=== PATIENT | male | born 1970 | race Caucasian/White ===

== ENCOUNTER 2016-09-04 15:00 | Observation (INO) | payer BC ==
[~2016-09-04] VITALS: Ht 182.9 cm; Wt 172.6 kg
--- NOTE | ~2016-09-04 | DS ---
PATIENT'S NAME: JON SOTO [facility] AGE: 46 Y [address] ROOM: [address] [place], [place] [address] LOCATION: GPCU ADMIT DATE: 09/04/2016 Discharge Summary DISCHARGE DATE: 09/06/2016 FAMILY PHYSICIAN: Elfego Summers MD ATTENDING PHYSICIAN: Elfego Summers FINAL DIAGNOSES: 1. Community-acquired pneumonitis, type unspecified, present on admission. 2. Morbid exogenous obesity, present on admission. 3. Diabetes mellitus type 2, treated with insulin with hyperglycemia. 4. Hypertension of essential, present on admission, stable. 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 I felt he probably had a pneumonia and I admitted him to the hospital. Please see my history and physical. On admission to the hospital, I ordered a CT scan of his chest because he was on anticoagulant to make sure he did not have a pulmonary embolus. His CT scan of the chest came back showing a dense right middle lobe infiltrate without evidence of pulmonary embolus or other complicating feature. See report. The patient was started on the pneumonia pathway, started on sliding scale insulin, continued on his prior home medicine, given breathing treatments 4 times a day and started on IV Rocephin and IV Zithromax, and given Phenergan with Codeine for cough. He improved. On the day of dismissal on 09/06/2016, he has improved enough to go home. On dismissal, he is ambulating without symptoms, his O2 sats are above 90% on room air, his Accu-Chek this morning was in the 120s, his blood pressure is normal, and he has been afebrile for 24-36 hours. He has had no untoward side effects of treatment with IV antibiotics. He, therefore, is dismissed to home today. He is dismissed on the med list shown. Will finish out 7 more days of Ceftin 500 and Zithromax. We will send him home with some cough medicine, and follow up in the office in 2 weeks. I told him we would get a followup chest x-ray in 2-4 weeks to make sure he heals up. PATIENT'S NAME: JON SOTO [facility] AGE: 46 Y [address] ROOM: [place] [address] [facility] ADMIT DATE: 09/04/2016 Discharge Summary DISCHARGE DATE: 09/06/2016 FAMILY PHYSICIAN: Elfego Summers MD ATTENDING PHYSICIAN: Elfego Summers If he has fever, chills, or other problems, he should be seen back earlier and he understands. MD JAVIER POOLE/zeyadl /[id number] d: 09/06/16 2106 t: 09/24/16 1731, DISCHARGE SUMMARY
--- NOTE | ~2016-09-04 | HP ---
PATIENT'S NAME: JON SOTO [facility] AGE: 46 Y [address] ROOM: [place] [address] LOCATION: GPCU ADMIT DATE: 09/04/2016 History & Physical DISCHARGE DATE: 09/06/2016 FAMILY PHYSICIAN: Elfego Summers MD ATTENDING PHYSICIAN: Elfego Summers DATE OF SERVICE: CHIEF COMPLAINT: Cough and shortness of breath. 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 He is a new patient to me just prior to admission. He presented to my office today with a cough, fever 102, and found to have an O2 saturation of 90% in my office and obvious right lower lobe pneumonia. I admitted him to the hospital at this time with a diagnosis of community-acquired pneumonitis, type unspecified, with a history of morbid exogenous obesity, chronic anticoagulation for DVT in the past, diabetes mellitus type 2, and hypoxemia related to community-acquired pneumonitis. At this point, we will put him in the hospital, put him on the pneumonia pathway, start with IV Rocephin and IV Zithromax, give him breathing treatments, cover him with Lovenox if he is not already on Eliquis and obtained a CT of the chest with PE protocol to rule out pulmonary embolus along with an acute infiltrate in his right lung. PAST MEDICAL HISTORY: Reviewed and noted. MEDICATIONS: Reviewed and noted. ALLERGIES: NOTED. SOCIAL HISTORY: He does not smoke. FAMILY HISTORY: Noncontributory. IMMUNIZATIONS: Up-to-date. REVIEW OF SYSTEMS: HEENT: He has had a runny nose. He wears glasses. PATIENT'S NAME: JON STOO [facility] AGE: 46 Y [address] ROOM: [place] [address] LOCATION: GPCU ADMIT DATE: 09/04/2016 History & Physical DISCHARGE DATE: 09/06/2016 FAMILY PHYSICIAN: Elfego Summers MD ATTENDING PHYSICIAN: Elfego Summers ENDOCRINE: He is a type 2 diabetic, on insulin. LUNGS: As above. HEART: No recent chest pain with exertion. No recent MO. GI: Decreased appetite. : No dysuria or frequency. EXTREMITIES: Chronic edema. NEUROLOGIC: No history of seizure or syncope. Mental Status: Anxious about his health. PHYSICAL EXAMINATION: GENERAL: Morbid exogenous obesity noted. VITAL SIGNS: Noted. He is febrile. O2 sats noted. He is competent. HEENT: Shows he wears glasses. Pupils reactive to light. TMs normal. Posterior pharynx is erythematous. No exudate. Mucous murmurs are dry. NECK: Unremarkable. Thyroid not enlarged. LUNGS: Clear in the upper lobes. Decreased breath sounds in both lower lobes posteriorly. CARDIAC: Heart sounds are distant. Regular rhythm noted. No murmur. ABDOMEN: Morbidly obese, but nontender. No obvious mass. PELVIS: Not done. RECTAL: Not done. EXTREMITIES: Show 4+ edema in the ankles. NEUROLOGIC: Shows cranial nerves intact. No lateralizing signs. Mental status: Normal cognition for age, but anxious about health. ASSESSMENT: 1. Acute community-acquired pneumonitis, type unspecified, probably right lower lung. 2. Morbid exogenous obesity. 3. Diabetes mellitus, type 2, treated with insulin. 4. History of chronic anticoagulation, need further records. 5. Hypoxemia, secondary to acute community-acquired pneumonitis. PLAN: As above. MD JAVIER POOLE/sallie /[id number] D: [id number] T: [id number] HISTORY & PHYSICAL
[2016-09-04] MEDS ORDERED: FARXIGA10 MG PO (16:12)
[2016-09-04] MEDS ORDERED: ELIQUIS5 MG PO (16:12)
[2016-09-04] MEDS ORDERED: TOPROL XL25 MG PO (16:13)
[2016-09-04] MEDS ORDERED: PRINIVIL (ZESTR20 MG PO (16:13)
[2016-09-04] MEDS ORDERED: ASPIRIN LO-DOSE81 MG PO (16:14)
[2016-09-04 17:56] LABS: BASOPHIL # 0.1 K/uL (0.0-0.2); BASOPHIL % 0.4 %; EOSINOPHIL # 0.1 K/uL (0.0-0.5); EOSINOPHIL % 0.4 %; HEMATOCRIT 52.3 % (37.0-53.0); HEMOGLOBIN 17.7 g/dL (12.0-17.0); IMMATURE GRANULOCYTE # 0.1 K/uL (0.0-0.3); IMMATURE GRANULOCYTE % 0.4 %; LYMPHOCYTE # 1.6 K/uL (0.8-4.0); LYMPHOCYTE % 11.3 %; MCH 29.3 pg (27.0-34.0); MCHC 33.8 gm/dL (32.0-36.5); MCV 86.6 fl (83.0-98.0); MONOCYTE % 6.9 %; MPV 11.1 fl (9.4-12.4); NEUTROPHIL # (ANC) 11.1 K/uL (1.4-9.0); NEUTROPHIL % 80.6 %; NRBC % 0 /100WBC (0-0.00); PLATELET COUNT 159 K/uL (150-450); RBC 6.04 M/uL (4.00-6.00); RDW-CV 13.7 % (11.9-14.6); WBC 13.8 K/uL (4.0-11.0)
[2016-09-04 18:09] LABS: ALBUMIN 3.9 gm/dL (3.5-5.0); ANION GAP 14.5 (10.0-19.0); CALCIUM 8.7 mg/dL (8.5-10.5); POTASSIUM 4.5 mMol/L (3.7-5.1); TOTAL BILIRUBIN 0.5 mg/dL (0.0-1.5); TOTAL PROTEIN 7.8 g/dL (6.0-8.4)
[2016-09-04 18:14] LABS: INR - (THERAPEUTIC) 0.97 (0.92-1.07); PROTIME 10.2 SECONDS (9.8-11.4); PTT 28 SECONDS (25-32)
--- NOTE | 2016-09-04 19:23 | NUR ---
ADMIT NOTE: A 46 YR. OLD W/M ADMITTED FROM DR. Marcy BETANCOURT [facility]. STARTED FEELING SICK ON Thursday09/03/16. HAD CHILLS AND A COUGH. THRU THE NIGHT DIDN'T GET MUCH REST AND TOOK ADVIL FOR FEVER. BY THURSDAY A.M. 09/04/16. FELT WORSE AND HAD PROD. COUGH OF GREENISH SPUTUM. AND CONT. WITH FEVER. ADMITTED FOR PNEUMONIA.
--- NOTE | 2016-09-05 05:22 | NUR ---
Significant events: Pt A/Ox3. VSS. On RA. Productive cough. No complaints of pain. Tylenol x1 for feeling "feverish", max temp of 99.6. Up ad gloria. IV antibiotics. ACHS accucheck. Slept most of shift.
--- NOTE | 2016-09-05 12:07 | NUR ---
Diabetes consult: Patient with Type II diabetes and A1C of 11.7%. Patient has been on Farxiga for the last year and was recently restarted on Metformin 500 mg per day. Previously he reports being given Metformin 1500 mg and had severe diarrhea. The patient states he is tolerating the low dose metformin well at this time. Patient may benefit from a basal insulin in addition to his oral glycemic to lower his A1C. In addition, he would benefit from outpatient MNT therapy. Currently he is receiving Novolog aggressive correction scale. The patient was instructed on use of this scale and basal/bolus insulin in anticipation of being discharged on one or both agents. Patient received instructions on how to use the insulin pen device and received a new glucometer. Education regarding hypo and hyperglycemia was reviewed. The patient is not receptive to outpatient diabetes ed but would like to meet with the dietitian. Referral for outpatient dietitian was faxed to Dr. Summers. Patient denies any questions or concerns. Report given to patient's primary nurse.
--- NOTE | 2016-09-05 13:34 | NUR ---
Introduced self and CM role to [place]. He tells me that he lives in [place] with his S/O and plans to return there when he is able to. He says that his S/O will come and pick him up when he is released from our care. [place] states that his PCP is , he sees' him on a regular basis. He manages his own medications at baseline, gets them filled at [facility], will continue to do this when dismissed. Denies any need for any DME or HHC upon dismissal. He is hoping to get to go home either later today or tomorrow if he is able to do so. CM to continue to follow and assist. Plan home.
--- NOTE | 2016-09-05 16:36 | NUR ---
Significant Event: A/O X 3. UP AD SCOTTY. LESS SHORT OF BREATH AND FEELING BETTER TODAY. CONT. ON IV ANTIBIOTICS. AFEBRILE. HR SR IN 80-90'S. SBP 120-130'S. TYLENOL FOR HEADACHE. Follow up: CONT. TO [facility] RESP. STATUS.
--- NOTE | 2016-09-06 05:03 | NUR ---
A/OX3. VSS on RA. Non-productive cough. No C/O pain. ACHS accuchecks. Independed in room. 650mg of Tylenol given at 0000 for Headache. Regular Diet. No IV access OK'd by Dr. Summers. Changed Rocephin to IM. Lung sounds are clear and dimished. Bowel sounds present.
[2016-09-06] MEDS ORDERED: TYLENOL325 MG PO (11:40)
[2016-09-06] MEDS ORDERED: PHENERGAN WITH15 ML PO (11:41)
[2016-09-06] MEDS ORDERED: ZITHROMAX250 MG PO (11:42)
--- NOTE | 2016-09-06 12:49 | NUR ---
DISM. NOTE: A/O X 3. AT BEDSIDE REVIEW OF HOME MEDS AND NEW MEDS WITH HANDOUTS AND SIDE EFFECTS DISCUSSED. PRESCRIPTIONS GIVEN. FOLLOW UP APPT. DIET/ ACTIVITY PT. AND VOICED UNDERSTANDING
== END 2016-09-06 12:40 | disposition disaster alternative care site (69) ==
LOC: GPCU 15:05
PROVIDERS: ADMIT Family Medicine
DX: J18.9 Pneumonia, unspecified organism (principal); E66.01 Morbid (severe) obesity due to excess calories; E11.65 Type 2 diabetes mellitus with hyperglycemia; I10 Essential (primary) hypertension; Z79.4 Long term (current) use of insulin; Z68.43 Body mass index [BMI] 50.0-59.9, adult
CPT/HCPCS: G0378; G0379; J0456; J0696; J1650; J7040; J7050

== ENCOUNTER → 2016-09-11 | Outpatient (CLI) | payer BC ==
[~2016-09-11] MED LIST: ADVIL200 MG PO; ASPIRIN LO-DOSE81 MG PO; CLINDAMYCIN150 MG PO; ELIQUIS5 MG PO; FARXIGA10 MG PO; LASIX40 MG PO; LEVEMIR100 UNIT/1 SUB-Q; PHENERGAN WITH15 ML PO; POTASSIUM CHLO10 MEQ PO; PRINIVIL (ZESTR20 MG PO; TOPROL XL25 MG PO; TYLENOL325 MG PO; ULTRAM50 MG PO; ZITHROMAX250 MG PO
== END | disposition disaster alternative care site (69) ==
LOC: GNUT 08:54
DX: E11.65 Type 2 diabetes mellitus with hyperglycemia (principal)

== ENCOUNTER 2016-09-23 19:19 | Inpatient (IN) | payer BC ==
[~2016-09-23] VITALS: Ht 182.9 cm; Wt 192.9 kg
--- NOTE | ~2016-09-23 | ER ---
PATIENT'S NAME: JON SOTO [facility] AGE: 46 Y [address] ROOM: [place] [address] LOCATION: GPCU ADMIT DATE: 09/23/2016 ER/Outpatient Report DISCHARGE DATE: FAMILY PHYSICIAN: NILSON SUMMERS MD ATTENDING PHYSICIAN: KELSY LANE Time of Arrival: 1919 hours. Time of Exam: 1920 hours. CHIEF COMPLAINT: Right leg pain. HISTORY OF PRESENT ILLNESS: The patient states that he woke this morning around 5 o'clock with swelling and pain of his right lower leg. He did see Dr. Summers and had a Doppler done of the leg, it was negative for clot at that time. He was given a shot of Rocephin for cellulitis and to go back tomorrow morning for another injection. He states tonight that the pain has become much more severe, it seems more swollen than what it had and he is just concerned that things are getting worse instead of better. ALLERGIES: HE HAS NO KNOWN ALLERGIES. CURRENT MEDICATIONS: On the chart and reviewed by me. PAST MEDICAL HISTORY: He recent went home mid-August due to pneumonia. He is vhg-vgimzna-rcriitodb diabetes, hypertension, and iliac stents bilaterally. SOCIAL HISTORY: He presents with his . Denies use of tobacco, drugs, or alcohol. REVIEW OF SYSTEMS: Negative other than those mentioned in the HPI. PHYSICAL EXAMINATION: VITAL SIGNS: He weighed 179 kg, blood pressure is 155/89, pulse of 98, respirations 24, temperature of 98.2 tympanic, O2 saturation was 96% on room air. GENERAL: He is awake, alert, and oriented x4. SKIN: [place], warm, and dry. RESPIRATIONS: Even and nonlabored. Lung sounds are clear throughout. HEART: Regular rate and rhythm. PATIENT'S NAME: JON SOTO [facility] AGE: 46 Y [address] ROOM: [address] [address] LOCATION: GPCU ADMIT DATE: 09/23/2016 ER/Outpatient Report DISCHARGE DATE: FAMILY PHYSICIAN: NILSON SUMMERS MD ATTENDING PHYSICIAN: KELSY LANE EXTREMITIES: Right lower leg is quite edematous and is purplish red in color. It is cool to touch. He does have a strong pedal pulse. Able to move his leg, wiggle his toes. Does have quite a bit of discomfort with it. LABORATORY DATA: Lab work was drawn. His CBC was 12.2. Chem panel shows a glucose of 263, otherwise within normal limits. Lactate was 1.7 with a procalcitonin which is normal. I did repeat the venous Doppler of his legs, it did show a clot at the right femoral vein. Dr. Summers was contacted, he would like the Hospitalist to be notified. Dr. Lane was contacted. He did come see the patient and ordered for CT angiogram stat as well as start a heparin drip. IMPRESSION: Right femoral deep vein thrombosis. PLAN: The patient will be admitted to the hospital for care of the Hospitalist. He and his family verbalized understanding. TREMAYNE NOBLE APRN FOR DO JONAH HALEY/sallie /[id number] d: 09/24/16 0239 t: 10/01/16 1623, OUTPATIENT REPORT
--- NOTE | ~2016-09-23 | DS ---
PATIENT'S NAME: JON SOTO [facility] AGE: 46 Y [address] [place] [facility] [place] [place] [address] LOCATION: GPCU ADMIT DATE: 09/23/2016 Discharge Summary DISCHARGE DATE: 09/28/2016 FAMILY PHYSICIAN: Elfego Summers MD ATTENDING PHYSICIAN: Trent Arriola PRINCIPAL DIAGNOSES: 1. Sepsis, secondary to right leg cellulitis. 2. Right lower extremity ulcer. 3. Acute right lower extremity deep vein thrombosis while on anticoagulation. 4. Scrotal swelling. 5. Morbid obesity. 6. Type 2 diabetes. HOSPITAL COURSE: This is a 46-year-old male with a history of uncontrolled diabetes and a history of right lower extremity DVT that presents with worsening pain of the right lower leg. On presentation, he was noted to have an open ulcer as well as cellulitis around the ulcer on the right leg. The patient also had a repeat venous Doppler, which showed an acute DVT. The patient had been on Eliquis for previous DVT and this new DVT is deemed to be while on anticoagulation and the patient generally reports compliance with the medications. Noting that this is an acute DVT while on anticoagulation, Vascular Surgery Team was consulted and an IVC had been placed. The patient in the following days also complained of increasing scrotal pain and noting that the patient also has significant history of venous stasis and this appears to be related to the problems with venous return. In any case, I have had Urology, Dr. Gibson, come and evaluate the patient, and he agrees with conservative management and fluid management. The patient at this point is to continue to finish antibiotic course of clindamycin and will follow up with the [facility] in 1 week, primary care physician in 1 week, as well as Vascular Surgery in 2 to 3 weeks. PHYSICAL EXAMINATION: GENERAL: The patient is awake, alert, and oriented x3, in no acute distress. CHEST: Clear to auscultation bilaterally. HEART: S1 and S2, regular rate and rhythm. ABDOMEN: Soft, nontender, nondistended. EXTREMITIES: Right lower extremity pitting edema with a superficial open ulcer and mild oozing. MEDICATIONS: Per MAR includin. Lasix 40 mg p.o. daily. 2. Clindamycin 600 mg t.i.d. for 3 more days. 3. Eliquis 5 mg p.o. t.i.d. PATIENT'S NAME: JON SOTO [facility] AGE: 46 Y [address] ROOM: [place] [address] LOCATION: GPCU ADMIT DATE: 09/23/2016 Discharge Summary DISCHARGE DATE: 09/28/2016 FAMILY PHYSICIAN: Elfego Summers MD ATTENDING PHYSICIAN: Trent Arriola DISPOSITION: Home. FOLLOW UP: Followup with PCP in 1 week, Wound Care in 1 week, as well as Vascular Surgery in 2 to 3 weeks. Greater than 30 minutes were spent in discharge planning and facilitating. MD BRAULIO WEINER/sallie /[id number] d: 09/29/16 0054 t: 09/29/16 1426, DISCHARGE SUMMARY
--- NOTE | ~2016-09-23 | DS ---
PATIENT'S NAME: JON SOTO [facility] AGE: 46 Y [address] ROOM: [place] [address] LOCATION: GPCU ADMIT DATE: 09/23/2016 Discharge Summary DISCHARGE DATE: FAMILY PHYSICIAN: Nilson Betancourt MD ATTENDING PHYSICIAN: Trent Arriola FINAL DIAGNOSES: 1. Right middle lobe community-acquired pneumonitis. 2. Morbid exogenous obesity. 3. Diabetes mellitus, type 2. 4. Hypertension, essential. HOSPITAL COURSE: This male was admitted to the hospital after being seen in my office. Please see dictated history and physical. He was placed on the pneumonia pathway, given IV antibiotics, and because of his size and his amount of shortness of breath, I went ahead and did a CT scan of his chest with PE protocol. This came back showing a large consolidation in the right middle lobe, but no evidence of other complicating features such as pulmonary embolus. His cardiac workup here was negative. He continued to improve with IV antibiotics and was dismissed to home on the date shown. He is dismissed on the medications shown. He is to see back in office in 1 week. At home, he can have a diabetic diet and activity as tolerated and finish out his course of antibiotics; certainly, if he coughs up any blood, has high fever, chills, vomiting, diarrhea, rash from his medicine, or diarrhea he is to be seen back earlier and he verbalizes understanding of that. NILSON BETANCOURT MD WOMEN'S STUDIES LECTURER/modl /[id number] d: 09/25/16 0147 t: 09/26/16 0754, DISCHARGE SUMMARY
--- NOTE | ~2016-09-23 | OR ---
PATIENT'S NAME: JON SOTO [facility] AGE: 46 Y [address] ROOM: [place] [address] LOCATION: GPCU ADMIT DATE: 09/23/2016 OR/Procedure Report DISCHARGE DATE: FAMILY PHYSICIAN: NILSON BETANCOURT MD ATTENDING PHYSICIAN: KELSY LANE SURGEON: Geoff Cage MD OUTPATIENT RECEPTIONIST: DATE OF PROCEDURE: 09/24/2016 PREOPERATIVE DIAGNOSIS: Deep vein thrombosis while on anticoagulation, need for inferior vena cava filter. POSTOPERATIVE DIAGNOSIS: Deep vein thrombosis while on anticoagulation, need for inferior vena cava filter. PROCEDURE: IVC filter placement. PATTERN FITTER: Nishant. ANESTHESIA: MAC local. BLOOD LOSS: 50 mL. OPERATIVE FINDINGS: Bilateral iliac vein stent present in the patient preop as well filter in correct upright position. DESCRIPTION OF PROCEDURE: The patient was brought to [facility], placed supine on the [facility] table, prepped and draped in a sterile manner, preoperative time-out was performed. We used ultrasound guidance to gain access to the common femoral vein on the left. The patient had a complete blockage on the right with DVT. Even with ultrasound guidance, access was extremely difficult and eventually we did get access. We then passed a Bentson wire up and the Bentson wire got caught on the iliac stents. We put a 5-[place] Citizen sheath over the Bentson wire. We then had to use angled glide catheter as well as a Glidewire in order to traverse these torture stents. We then exchanged through the glide cath for a stiffer Magic Torque wire. We then deployed the filter at the L1-L2 screws using the Magic Torque wire. Sheath was removed, pressure was held for 10 minutes, the patient tolerated the procedure well, and transferred back to the U. GEOFF CAGE MD PATIENT'S NAME: JON SOTO [facility] AGE: 46 Y [address] ROOM: [place] [address] LOCATION: GPCU ADMIT DATE: 09/23/2016 OR/Procedure Report DISCHARGE DATE: FAMILY PHYSICIAN: NILSON BETANCOURT MD ATTENDING PHYSICIAN: KELSY LANE [facility]/modl /[id number] d: 09/25/16 0139 t: 09/26/16 1233, OPERATIVE SUMMARY
--- NOTE | ~2016-09-23 | CON ---
PATIENT'S NAME: JON SOTO [facility] AGE: 46 Y [address] ROOM: [address] [place] [address] LOCATION: GPCU ADMIT DATE: 09/23/2016 Consultation DISCHARGE DATE: FAMILY PHYSICIAN: NILSON BETANCOURT MD ATTENDING PHYSICIAN: KELSY LANE DATE OF CONSULTATION: 09/24/2016 REFERRING PHYSICIAN: Dr. Lane. REASON FOR CONSULT: Right lower extremity cellulitis. HISTORY OF PRESENT ILLNESS: This is a 46-year-old male patient who was admitted to [facility] with right lower extremity cellulitis. He has a history of type 2 diabetes mellitus, hypertension, PVD, and DVT. Last week, he suffered trauma to the site by a drill bit. He is currently applying Neosporin to the wound. Ultrasound was positive for right lower extremity DVTs. The patient denies constitutional symptoms. He was previously anticoagulated on Eliquis; however, notes he did miss some doses. He reports a good oral intake. He does not wear diabetic footwear. He does not wear compression stockings. He has a history of an iliac stent. He denies intermittent claudication symptoms. He denies chest pain or shortness of breath. PAST MEDICAL HISTORY: Type 2 diabetes mellitus, essential hypertension, morbid obesity, community- acquired pneumonia, DVT, PVD, and cellulitis. PAST SURGICAL HISTORY: Laminectomy, iliac stent, tonsillectomy, knee scope, and hand surgery. FAMILY MEDICAL HISTORY: Positive for diabetes. SOCIAL HISTORY: The patient lives with his in [place]. He is a nonsmoker. He denies alcohol use. 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 ALLERGIES: NO KNOWN DRUG ALLERGIES. CURRENT MEDICATIONS: PATIENT'S NAME: JON SOTO [facility] AGE: 46 Y [address] ROOM: [id number] [place] [id number] LOCATION: GPCU ADMIT DATE: 09/23/2016 Consultation DISCHARGE DATE: FAMILY PHYSICIAN: NILSON BETANCOURT MD ATTENDING PHYSICIAN: KELSY LANE Please refer to medication administration record. REVIEW OF SYSTEMS: Pertinent positives addressed in the HPI and all the rest are negative. PHYSICAL EXAMINATION: VITAL SIGNS: Temperature 98.0, pulse 89, respirations 16, blood pressure 127/83, and pulse oximetry 94% on room air. Height 6 feet even and weight 178.4 kg. GENERAL: The patient is alert and oriented x3. Obese in nature. No acute distress. HEENT: Head: Normocephalic, atraumatic. Anicteric sclerae. NEUROLOGICAL: Grossly nonfocal. EXTREMITIES: Doppled pedal pulses. +3 pitting lower leg edema. Capillary refill intact. Heel intact. Right lower extremity, slightly erythemic and stained. SKIN: Right anterior lower extremity wound measures 0.6 cm width x 2.5 cm length x 0.1 cm depth. Wound bed is moist pink. Moderate amount of serosanguineous exudate. Periwound is slightly erythemic but intact. No odor. No other skin issues noted. LABORATORY DATA: White blood cell count 16.1, hemoglobin 15.6, hematocrit 47.1, platelets 153. Procalcitonin less than 0.05. Sodium 139, potassium 4.8, chloride 106, bicarb 23, BUN 21, creatinine 1.0, glucose 211, CRP 1.91, and ESR 3. ASSESSMENT AND PLAN: Again, this is a 46-year-old male patient who was admitted to [facility] with right lower extremity cellulitis and deep vein thromboses. 1. Right lower extremity wound secondary to trauma, complicated by diabetes, peripheral vascular disease, and current deep vein thromboses. We will cover the site with a foam dressing changing Thursday, Thursday, and Thursday. The patient is to have an IVC filter placed by Dr. Cage. After the procedure, nursing is to wrap his right lower extremity from his toes to his thigh with Eugene wraps. They may remove the Eugene wraps to shower and nightly starting tomorrow night. I stressed the importance of elevation and ankle calf pump muscle exercises. VIRY ADHIKARI APRN FOR MD MARTHA BRADSHAW/sallie PATIENT'S NAME: JON SOTO [facility] AGE: 46 Y [address] ROOM: [place] [address] LOCATION: GPCU ADMIT DATE: 09/23/2016 Consultation DISCHARGE DATE: FAMILY PHYSICIAN: NILSON BETANCOURT MD ATTENDING PHYSICIAN: KELSY LANE /[id number] d: 09/25/1650 t: 10/02/16905, CONSULTATION REPORT
--- NOTE | ~2016-09-23 | HP ---
PATIENT'S NAME: JON SOTO [facility] AGE: 46 Y [address] ROOM: [id number] [place], [place] [address] LOCATION: GPCU ADMIT DATE: 09/23/2016 History & Physical DISCHARGE DATE: FAMILY PHYSICIAN: NILSON BETANCOURT MD ATTENDING PHYSICIAN: KELSY LANE DATE OF SERVICE: CHIEF COMPLAINT: Right lower extremity pain and swelling and cyanosis. HISTORY OF PRESENT ILLNESS: This is a 46-year-old male who says that he is noncompliant with home medications. He has a history of prior DVT in the left lower extremity and right upper extremity. He was on Coumadin and then about June 2016 he was switched to Eliquis, but he has been very noncompliant. He also has a history of cellulitis of the lower extremity about 4 to 5 years ago. The story is that about last Thursday the patient injured his right lower extremity with a cut in the right anterior distal samuels. Since then, he has been having pain in that wounded area and getting worse. Today, the right lower extremity has become swollen and tender and also cyanotic as cold to touch. There is some serosanguineous drainage coming out from that wounded area as well. There is no obvious pus. He denies any fever or chills. He also complained that about last Thursday when he was driving back from [place] to [place] he was complaining of some cramps in bilateral thighs on and off for the last few days as well. He denies symptoms of intermittent claudication. Because of the swelling, pain, and serosanguineous drainage with cyanosis of the right lower extremity, the patient today went to [facility] for evaluation. Over there, they did a venous duplex ultrasound, which did not show anything. He was told he had cellulitis. He was given 1 dose of intramuscular ceftriaxone and he was sent home. However, his symptoms persisted. Therefore, he came here for evaluation. He denies any other symptoms. REVIEW OF SYSTEMS: As mentioned in history of present illness. All other systems were reviewed and they were negative except those mentioned in the history of present illness. PAST MEDICAL HISTORY: 1. Diabetes type 2. 2. Hypertension. 3. History of DVT in the right upper extremity (PICC induced) and the left lower extremity PATIENT'S NAME: JON SOTO [facility] AGE: 46 Y [address] ROOM: [address] [address] [facility] ADMIT DATE: 09/23/2016 History & Physical DISCHARGE DATE: FAMILY PHYSICIAN: NILSON BETANCOURT MD ATTENDING PHYSICIAN: KELSY LANE in the past. 4. History of cellulitis in the leg in the past. 5. He is noncompliant with home medications. ALLERGIES: HE DENIES ANY ALLERGIES. HOME MEDICATIONS: Currently are being reconciled. SOCIAL HISTORY: The patient denies any illegal drug or cigarette use. PAST SURGICAL HISTORY: 1. The patient is status post iliac stent placed for peripheral vascular disease in February 2016, two stents on the left side and one stent on the right side. 2. Status post lower back surgery in the past. FAMILY HISTORY: Father has diabetes type 2. Mother has hypertension and diabetes type 2. PHYSICAL EXAMINATION: VITAL SIGNS: At the time of my evaluation, temperature was 98.3, heart rate was 91, respirations 24, blood pressure was 138/89, and saturation was 92% on room air. GENERAL APPEARANCE: Alert and oriented x3. Currently, in no acute distress. HEENT: Pupils equally round and reactive to light. Extraocular muscles intact. Anicteric sclerae. Nasal turbinates are normal bilaterally. Moist oral mucosa. NECK: No JVD. CARDIOVASCULAR: Regular rate and rhythm. Normal S1 and S2. No murmur. No rubs, no gallops. RESPIRATORY: Clear to auscultation. No rales. No rhonchi. No wheezing. No crackles. ABDOMEN: Obese, soft, nontender, nondistended. Bowel sounds present. No mass. EXTREMITIES: He has edema as well as cyanosis as well as serosanguineous drainage as well as tenderness to palpation in the right distal anterior samuels. There is no obvious purulent drainage. Dorsalis pedis pulse and posterior tibialis pulse cannot be palpated with a finger. However, they are audible on Doppler. He also has Homans sign positive on the right lower extremity. NEUROLOGICAL: Grossly nonfocal. SKIN: Cyanosis and erythema in the right lower extremity. PATIENT'S NAME: JON SOTO [facility] AGE: 46 Y [address] ROOM: [id number] [place], [place] [address] [facility] ADMIT DATE: 09/23/2016 History & Physical DISCHARGE DATE: FAMILY PHYSICIAN: NILSON BETANCOURT MD ATTENDING PHYSICIAN: KELSY LANE LABORATORY DATA: Lactic acid 1.7. White blood cells 12.2, hemoglobin 15.7, hematocrit 41.1, platelets 172. Glucose 263, BUN 24, creatinine 1.3, sodium 140, potassium of 4.4, chloride 108, CO2 of 22, calcium 8.6. Total protein 6.8, albumin 3.4, AST 18, ALT 41, alkaline phosphatase 79, total bilirubin 0.4, anion gap 14.4, globulin 3.4. A1c 11.7 on August 2016. INR 0.96, PT 27. Procalcitonin less than 0.05. GFR 65. IMAGING STUDIES: CT angiogram of the abdominal aorta to bilateral lower extremity: The preliminary report on admission showed limited angiogram. No critical arteriovascular stenosis. Right-sided three-vessel runoff to the level of the ankle and probable left-sided three-vessel runoff to the level of the ankle. IVC/common iliac vein stent graft in place. Patency is unclear. Given right lower extremity soft tissue swelling, consider right lower extremity Doppler ultrasound. Small inferior right rectus sheath hematoma. This is a preliminary report. Please follow up with the official report in the morning. ASSESSMENT/PLAN: 1. Regarding his sepsis secondary to right lower extremity cellulitis: Blood culture x2. We will get culture and gram stain from the drainage coming out from the cut. We will get wound care consult in the morning. Cover with IV vancomycin and IV Zosyn given that patient is septic. IV fluids for hydration. I will get add-on ESR and CRP to see if there is a concern for osteomyelitis. If they are elevated, we will get MRI with contrast of the right lower extremity in the morning to rule out osteomyelitis. In that case, the patient will require orthopedic surgery consult for debridement and bone biopsy. I am not going to be delay the antibiotics because the patient is septic and has pain. Pain control with IV Dilaudid p.r.n. and also p.o. [place] p.r.n. and IV fentanyl p.r.n. IV morphine does not do any pain control for the patient, and the patient does not want any IV morphine. Will watch very closely and monitor for possibility of necrotizing fasciitis and/or compartment syndrome and in that case I will call organizational development director general surgeryor orthopedic surgery for opinion and surgical exploration. Further plan will depend on clinical course. Will add clindamycin as well for coverage. 2. Regarding his right lower extremity deep venous thrombosis: Venous duplex ultrasound was performed in the ED and the report was given over the telephone that he has a DVT in the right lower extremity. Please follow up with official report in the morning. In the meantime, we will put him on IV heparin drip for DVT protocol. Avoid compression devices. 3. Regarding his concern for acute limb ischemia of the right lower extremity: As mentioned before, the preliminary report of the CT angiogram of the lower extremity did not show any critical arterial vascular stenosis. However, this is a preliminary report. Please follow up with official report in the morning. In the meantime, overnight, nurse will be checking with Doppler ultrasound of the right lower extremity to make sure the pulses are still audible. PATIENT'S NAME: JON SOTO [facility] AGE: 46 Y [address] ROOM: [place] [address] [facility] ADMIT DATE: 09/23/2016 History & Physical DISCHARGE DATE: FAMILY PHYSICIAN: NILSON BETANCOURT MD ATTENDING PHYSICIAN: KELSY LANE 4. Regarding his diabetes type 2: We will cover with subcu Levemir 10 units b.i.d. and with subcu regular insulin moderate dose q.4 hours while n.p.o. and also subcutaneous NovoLog moderate dose a.c. and at bedtime while eating. A1c will not be repeated because he had one that was done recently. 5. Regarding his hypertension: Hold off on blood pressure medication in the setting of sepsis and always can resume if necessary. 6. Regarding his deep vein thrombosis prophylaxis: He is on IV heparin drip. 7. He is a full code. Time spent in care on the day of admission 60 minutes where 20 minutes was spent on chart review and remainder of the time was spent on interview and physical examination and also on counseling. The counseling included going over the plan of care with the patient and family members and addressing all the questions and concerns to their satisfaction. This time also includes ordering the CT angiogram and talking to the audio visual technician to have the report read by the [facility] and also went over the plan of care in detail with the report of the CT angiogram with the patient and patient's family member. I also went over the plan of care in detail with the nurse. Further plan will depend on clinical course. MD PRUDENCIO LANDIS/sallie /[id number] D: [id number] T: [id number] HISTORY & PHYSICAL
--- NOTE | ~2016-09-23 | ENPV ---
Vascular Lower Extremities DVT Study Procedure Demographics Patient Name JON SOTO Date of Study 09/23/2016 Patient Number [id number] Gender Male Date of 1970 Age 46 Visit Number [id number] Height Accession Number [id number] Weight Room Number G6335 BSA BMI Referring Melina Tellez MD Physician Physician Keith Physician Ordering Physician Pathology Tech [employer] Information Clerk Ramos Solis, RVT Conclusions Summary Acute occlusive deep vein thrombosis in the right common femoral vein, femoral vein, popliteal, and posterior tibial veins. The right peroneal veins were not visualized secondary to edema, cannot rule out deep vein thrombosis in these veins. Procedure Type of Study: Veins:Lower Extremities DVT Study, Lower Extremity Right. Additional Indications:Right lower extremity pain/edema Appropriate Use Criteria:9 Patient Status:STAT. Study Location:ER. Technical Quality:Limited visualization due to edema. - Preliminary reported to:Dr.Diane Parker in the ED @2019. Velocities are measured in cm/s ; Diameters are measured in cm Right Lower Extremities DVT Study Measurements Right 2D and Doppler Measurements + + + + +------+------+ + !Location !Visualized!Compressibility!Thrombosis!Signal!Reflux!Reflux ! ! ! ! ! ! ! !(sec) ! + + + + +------+------+ + !GSV Thigh !Yes !No !Acute !Absent! ! ! + + + + +------+------+ + !Common !Yes !No !Acute !Absent! ! ! !Femoral ! ! ! ! ! ! ! + + + + +------+------+ + !Prox !Yes !No !Acute !Absent! ! ! !Femoral ! ! ! ! ! ! ! + + + + +------+------+ + !Mid Femoral!Yes !No !Acute !Absent! ! ! + + + + +------+------+ + !Dist !Yes !No !Acute !Absent! ! ! !Femoral ! ! ! ! ! ! ! + + + + +------+------+ + !Popliteal !Yes !No !Acute !Absent! ! ! + + + + +------+------+ + !Gastroc !Yes !No !Acute !Absent! ! ! + + + + +------+------+ + !PTV !Yes !Yes !Acute !Absent! ! ! + + + + +------+------+ + !Peroneal !No ! ! ! ! ! ! + + + + +------+------+ + Left Lower Extremities DVT Study Measurements Left 2D and Doppler Measurements + + + + +------+------+ + !Location !Visualized!Compressibility!Thrombosis!Signal!Reflux!Reflux ! ! ! ! ! ! ! !(sec) ! + + + + +------+------+ + !Common !Yes !Yes !None !Phasic!No ! ! !Femoral ! ! ! ! ! ! ! + + + + +------+------+ + Signature dtt: JEREMY CABRERA: 09/23/162009 Physician Self Edit
--- NOTE | ~2016-09-23 | CON ---
PATIENT'S NAME: JON SOTO [facility] AGE: 46 Y [address] ROOM: [address] [address] LOCATION: GPCU ADMIT DATE: 09/23/2016 Consultation DISCHARGE DATE: FAMILY PHYSICIAN: NILSON BETANCOURT MD ATTENDING PHYSICIAN: KELSY LANE DATE OF CONSULTATION: 09/27/2016 REFERRING PHYSICIAN: JEREMY CABRERA MD CONSULTING: Sydnee Munroe MD. REASON FOR CONSULTATION: Scrotal swelling. HISTORY: This is a 46-year-old male admitted with a right lower extremity cellulitis. He has history of DVT. He has poor vascular return. He has had history of stents placed. Most recently, he had an IVC filter placed. He is morbidly obese at 179 kg. He has lko-cnlxnxj-fbhzsoqzy diabetes, hypertension, etc. He was recently hospitalized with a pneumonia. There has also been a question of compliance and he is honest about that. He had been on warfarin. He had been switched over to Eliquis, he admits he was not taking it correctly. In any event, he was admitted acutely. He has now had the previous IVC and common iliac vein graft. According to the notes, it is not definite that the graft is patent. He has had an ultrasound done. Testicles were normal by report. All of the fluid appears to be in the scrotal wall. That is a reflection of his poor vascular return and his positioning in conjunction with his morbid obesity. He is in an astronaut position. Specifically, his head is up and his feet are up, everything accumulates in his pelvis leading to his marked penoscrotal edema. Importantly, there is nothing that we need to do acutely other than to maximize his fluid management. I have encouraged him to try to avoid the astronaut position as much as possible. He can utilize some scrotal elevation. We should use moisturizers and local skin care. There is no sign of infection. Regardless, he is on antibiotics for his cellulitis. I have reassured the patient and his . He does not need anything surgical. Please call if there is any other questions or concerns. Otherwise, I would recommend conservative management as outlined above. IMPRESSION: Marked penoscrotal edema secondary to poor venous return, morbid obesity, and positioning as outlined above. PATIENT'S NAME: JON SOTO [facility] AGE: 46 Y [address] ROOM: [facility] [place], [place] [address] LOCATION: [facility] ADMIT DATE: 09/23/2016 Consultation DISCHARGE DATE: FAMILY PHYSICIAN: NILSON BETANCOURT MD ATTENDING PHYSICIAN: KELSY LANE PLAN AND RECOMMENDATIONS: As above. MD CHERI ALDANA/sallie /[id number] d: 09/27/16 1551 t: 09/30/16 1355, CONSULTATION REPORT
[~2016-09-23 19:19] MED LIST changes: -ADVIL200 MG PO; -CLINDAMYCIN150 MG PO; -LASIX40 MG PO; -LEVEMIR100 UNIT/1 SUB-Q; -POTASSIUM CHLO10 MEQ PO; -ULTRAM50 MG PO
[2016-09-23 19:58] LABS: BASOPHIL # 0.1 K/uL (0.0-0.2); BASOPHIL % 0.6 %; EOSINOPHIL # 0.2 K/uL (0.0-0.5); EOSINOPHIL % 1.8 %; HEMATOCRIT 47.1 % (37.0-53.0); HEMOGLOBIN 15.7 g/dL (12.0-17.0); IMMATURE GRANULOCYTE % 0.2 %; LYMPHOCYTE # 2.3 K/uL (0.8-4.0); LYMPHOCYTE % 18.5 %; MCH 29.1 pg (27.0-34.0); MCHC 33.3 gm/dL (32.0-36.5); MCV 87.4 fl (83.0-98.0); MONOCYTE # 0.8 K/uL (0.0-1.0); MONOCYTE % 6.3 %; MPV 10.9 fl (9.4-12.4); NEUTROPHIL # (ANC) 8.9 K/uL (1.4-9.0); NEUTROPHIL % 72.6 %; NRBC % 0 /100WBC (0-0.00); PLATELET COUNT 172 K/uL (150-450); RBC 5.39 M/uL (4.00-6.00); RDW-CV 13.9 % (11.9-14.6); WBC 12.2 K/uL (4.0-11.0)
[2016-09-23 20:07] LABS: INR - (THERAPEUTIC) 0.96 (0.92-1.07); PROTIME 10.1 SECONDS (9.8-11.4); PTT 27 SECONDS (25-32)
[2016-09-23 20:17] LABS: ALBUMIN 3.4 gm/dL (3.5-5.0); ANION GAP 14.4 (10.0-19.0); CALCIUM 8.6 mg/dL (8.5-10.5); CREATININE 1.3 mg/dL (0.6-1.3); POTASSIUM 4.4 mMol/L (3.7-5.1); TOTAL BILIRUBIN 0.4 mg/dL (0.0-1.5); TOTAL PROTEIN 6.8 g/dL (6.0-8.4)
[2016-09-23] MEDS ORDERED: ADVIL200 MG PO (22:11)
[2016-09-23] MEDS ORDERED: POTASSIUM CHLO10 MEQ PO (22:12)
[2016-09-23] MEDS ORDERED: LASIX40 MG PO (22:13)
--- NOTE | 2016-09-23 22:46 | NUR ---
Pt is a 46 year old male admitted for rt leg edema/pain. Pt states that redness in his rt leg began at 0500 today and increased throughout the day. Pain in his rt leg began @ 1700 and increased significantly when patient deciced to go to ER. Doppler neg from [facility] this afternoon. Hx of iliac stent placed and takes Eliquis. NKA. CTA done while in ER. Pulses to rt foot heard on doppler. Morphine and norco given for pain.
[2016-09-24 03:48] LABS: HEMATOCRIT 47.1 % (37.0-53.0); HEMOGLOBIN 15.6 g/dL (12.0-17.0); MCH 29.4 pg (27.0-34.0); MCHC 33.1 gm/dL (32.0-36.5); MCV 88.9 fl (83.0-98.0); MPV 10.9 fl (9.4-12.4); RBC 5.3 M/uL (4.00-6.00)
[2016-09-24 03:49] LABS: WBC 16.1 K/uL (4.0-11.0)
[2016-09-24 04:22] LABS: ANION GAP 14.8 (10.0-19.0); CALCIUM 8.4 mg/dL (8.5-10.5); POTASSIUM 4.8 mMol/L (3.7-5.1)
--- NOTE | 2016-09-24 05:11 | NUR ---
Significant Event: A/O x3. Afebrile. c/o mod to severe rt leg pain. Gave dilaudid 1mg x1, norco x1, fentanyl 50mcg x1. VSS on RA-1L. Non-compliant with cpap at home. SBP 130s. HR 70-90s. Rt leg elevated. NS @ 75/hr. Hep gtt @ 1900/hr. IV antibiotics administered. Follow up: continue to monitor per plan of care.
[2016-09-24 06:17] LABS: BILIRUBIN URINE NEGATIVE (NEGATIVE); BLOOD URINE NEGATIVE /UL (NEGATIVE); COLOR URINE YELLOW (YELLOW); GLUCOSE URINE 1000 mg/dL (NEGATIVE); KETONE URINE NEGATIVE (NEGATIVE); LEUKOCYTES URINE NEGATIVE /UL (NEGATIVE); NITRITE URINE NEGATIVE (NEGATIVE); PROTEIN URINE NEGATIVE (NEGATIVE); TURBIDITY URINE CLEAR (CLEAR); UROBILINOGEN URINE NORMAL (NORMAL)
--- NOTE | 2016-09-24 11:30 | NUR ---
Diabetes consult: Patient is well known to me from his previous admission on 09/04 for pneumonia. The patient had a high A1C of 11.7% at the time. He remained on oral glycemics following discharge. He did have outpatient education with the dietitian [facility] the [facility] on 09[facility]11 and is scheduled for a follow up with her on 09/30/2016. Currently the patient is resting with his eyes closed. He is not conversing, and his is at bedside helping with his cares. The patient's reports the patient injured his right leg, when a "hot drill bit" fell on it. He has a cellulitis to his right leg and the informs me that he also has a DVT. The states the patient is not very active outside of work. 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 Will continue to follow and assess education needs.
--- NOTE | 2016-09-24 11:48 | NUR ---
Introduced self and role of care management to patient's fikenn' as he is sleeping. He lives with his fiance' in [place]. She states that he is able to do all his own ADL's. She will be avaialable to assist as needed. She did ask for a financial assistance form since they have bills from 4 different hospitals that they are paying right now. I gave her the fianancial assistance form and instructions on how to complete and return. She verbalized understanding. She plans on him returning home on discharge. She denies any needs at this time. Will continue to follow.
--- NOTE | 2016-09-24 17:50 | NUR ---
Significant Event: A/O x3. VSS. Pt rates pain around 7-9. Last [place] given at 1645. NPO with ice chips. Pt has 3-4+ edema to lower extremities bilat. Doppler to find distal pulses. Wound to Rt. lower leg samuels. Bruising around wound. Pt has hx of PVD, DVT, and iliac stents bilat. Pt on Heprin running at 2100 units/hr. Next PTT at 1815. IV antibotics administered. Wears CPAP at night, have respiratory help set it up. Follow up: Going kannan to powerhouse laborer for IVC filter placement this evening.
[2016-09-25 03:24] LABS: BASOPHIL # 0.1 K/uL (0.0-0.2); BASOPHIL % 0.4 %; EOSINOPHIL # 0.5 K/uL (0.0-0.5); EOSINOPHIL % 3.7 %; HEMATOCRIT 44.8 % (37.0-53.0); IMMATURE GRANULOCYTE # 0.1 K/uL (0.0-0.3); IMMATURE GRANULOCYTE % 0.4 %; LYMPHOCYTE # 2.5 K/uL (0.8-4.0); LYMPHOCYTE % 18.3 %; MCH 29.8 pg (27.0-34.0); MCHC 33.5 gm/dL (32.0-36.5); MCV 88.9 fl (83.0-98.0); MONOCYTE # 1.2 K/uL (0.0-1.0); MONOCYTE % 8.4 %; MPV 10.8 fl (9.4-12.4); NEUTROPHIL # (ANC) 9.5 K/uL (1.4-9.0); NEUTROPHIL % 68.8 %; NRBC % 0 /100WBC (0-0.00); PLATELET COUNT 173 K/uL (150-450); RBC 5.04 M/uL (4.00-6.00); RDW-CV 14.3 % (11.9-14.6); WBC 13.8 K/uL (4.0-11.0)
[2016-09-25 03:40] LABS: ALBUMIN 3.1 gm/dL (3.5-5.0); ANION GAP 13.8 (10.0-19.0); CREATININE 1.1 mg/dL (0.6-1.3)
[2016-09-25 04:03] LABS: POTASSIUM 3.8 mMol/L (3.7-5.1)
--- NOTE | 2016-09-25 05:39 | NUR ---
Significant Event:Pt returned to floor at 2100 from labeling strategist where he had IVC placed through left groin. per report procedure went well pt came back to floor with vss. dressing to left groin clean dry intact. gauze and tegaderm. pt alert and oriented x4. extremites noted to have edema. lower extremities have 2-3+ edema noted. right leg red and swollwn. mepiplex applied to wound to right lower samuels area as ordered. when pt returned to floor sosa wrap applied from toes to thigh to right leg as ordered. pulses by doppler only to lower expremities. pt complain of lower back pain however this is chronic and patinet states it is no worse then prior to procedure. procedure site continues to be soft and dressing c/d/i throughout shift. pt up with 3 assist to bedside commode. iv to left hand dcd and new iv started to right forearm. pt heparin running at 2200units per hour and will have next ptthp at 0725. pt fiance in room and helps with all cares. cpap at night. Follow up:
--- NOTE | 2016-09-25 10:14 | NUR ---
Diabetes consult: Visited with the patient and his fiance this morning. IVC filter placed yesterday. The patient says very little during the visit. He's blood sugars are well controlled on Levemir. Recommend continuing Levemir at the time of discharge as the patient's A1C was 11.7%. Diabetes survival skills assessment completed.
--- NOTE | 2016-09-25 16:03 | NUR ---
Significant Event: A/OX3, VSS ON ROOM AIR. PT. GETS UP SBA WITH WALKER TO BATHROOM, WALKED IN ROOM SEVERAL TIMES TODAY. LARGE BM X2, VOIDS FINE IN BATHROOM. HEPARIN DRIP & VANCO D/C'D TODAY. STARTED ON ELIQUIS BID, FIRST DOSE @ HS. NORCO GIVEN @ 0936 FOR COMPLAINTS OF LEG/BACK PAIN. LEFT GROIN SITE IS OPEN TO AIR, BRUISING NOTICED AROUND SITE, NO DRAINAGE OR HEMATOMA NOTED. MEPILEX DRESSING TO R)RAMIREZ IS C/D/I. GRADY WRAP TO R)LEG, MAY REMOVE @ HS TONIGHT. SLIV'S TO R)HAND & R)FA. SHOWERED TODAY. FAMILY HERE TODAY. Follow up: CONTINUE WITH POC.
[2016-09-26 06:11] LABS: BASOPHIL # 0.1 K/uL (0.0-0.2); BASOPHIL % 0.3 %; EOSINOPHIL # 0.2 K/uL (0.0-0.5); EOSINOPHIL % 1.2 %; HEMATOCRIT 40.4 % (37.0-53.0); HEMOGLOBIN 13.7 g/dL (12.0-17.0); IMMATURE GRANULOCYTE # 0.1 K/uL (0.0-0.3); IMMATURE GRANULOCYTE % 0.4 %; LYMPHOCYTE # 1.5 K/uL (0.8-4.0); LYMPHOCYTE % 10.5 %; MCH 29.5 pg (27.0-34.0); MCHC 33.9 gm/dL (32.0-36.5); MCV 86.9 fl (83.0-98.0); MONOCYTE # 1.4 K/uL (0.0-1.0); MONOCYTE % 9.8 %; NEUTROPHIL # (ANC) 11.4 K/uL (1.4-9.0); NEUTROPHIL % 77.8 %; NRBC % 0 /100WBC (0-0.00); PLATELET COUNT 149 K/uL (150-450); RBC 4.65 M/uL (4.00-6.00); RDW-CV 13.8 % (11.9-14.6); WBC 14.7 K/uL (4.0-11.0)
[2016-09-26 06:26] LABS: ALBUMIN 3.1 gm/dL (3.5-5.0); ANION GAP 13.8 (10.0-19.0); BLOOD UREA NITROGEN 19 mg/dL (6-24); CALCIUM 8.3 mg/dL (8.5-10.5); CHLORIDE 102 mMol/L (96-110); CO2 22 mMol/L (22-32); CREATININE 0.9 mg/dL (0.6-1.3); MAGNESIUM 1.8 mg/dL (1.8-2.6); PHOSPHORUS 2.4 mg/dL (2.5-4.9); POTASSIUM 3.8 mMol/L (3.7-5.1); SODIUM 134 mMol/L (135-145)
--- NOTE | 2016-09-26 07:24 | NUR ---
Significant Event: PATIENT A/O X3. SBP 150-170 HR 90-105 O2 SATS 93% AND PATIENT WEARS C-PAP WHILE SLEEPING OR RESTING. PATIENT WAS UP TO BATHROOM SEVERAL TIMES WITH ASSIST OF . PATIENT SCROTUM SWOLLEN AND COMPLAINED OF SWELLING IN RIGHT LEG, HOSPITALIST NOTIFIED AND PATIENT WAS GIVEN 40MG OF LASIX IV AND 40MEQ K+ PO. PATIENT HAS IV IN RIGHT HAND WITH ANTIBIOTIC Q8HRS. ACHS. PATIENT C/O PAIN IN RIGHT LEG, GIVEN NORCO X1 AND DILAUDID X1. Follow up: FOLLOW CARE PLAN
--- NOTE | 2016-09-26 11:00 | NUR ---
Diabetes consult: Patient is up to the chair this morning, however his reports he had scrotal swelling last night. He was given lasix and reports having a sleepless night, being up to the bathroom multiple times. This may have contributed to his high fasting blood sugar this morning. The patient was scheduled to follow up with the RD [facility] on 09[facility]30/2016. This appt was cancelled and rescheduled for October 20 at 3:30 p.m.
--- NOTE | 2016-09-26 16:48 | NUR ---
Significant Event: Patient alert and oriented. Pulses in lower extremities by doppler. 2-3+ edema in lower extremities/scrotum. R) leg sosa wrapped. IV lasix/athletic support ordered. IV clindomycin DC'd and started on PO. 1 [place] given for pain. Bruising to R) groin site, site healed. Changed mepilex to R) samuels. Saline lock to R) hand. Showered with family assist. Significant other at bedside. Has had family visit throughout the day. Cooperative with cares. VSS on room air. One BM. Up to bathroom to vd frequent. Follow up:
--- NOTE | 2016-09-27 05:45 | NUR ---
Significant events: Pt A/Ox3. VSS. Spur x2 for pain. Up SBA. R) lower leg elevated, edema and redness noted. Mepilex dressing in place. R) groin and scrotum swollen, Towels placed underneath for support. CPAP at night. L) groin IVC site CDI. Slept well this shift. Pulses to feet dopplered. ACHS accucheck. GRADY wrap removed at HS.
--- NOTE | 2016-09-27 11:47 | NUR ---
A-SCREENED D/T LOS ADMITTED FOR R)LEG EDEMA/PAIN. S/P IVC FILTER PLACEMENT HT: 72 IN. WT: 182.3 KG. IBW: 81 KG. BMI: 54.5 LABS: NA 134, K+ 3.8, GLU 195, BUN 19, LICENSED SOCIAL WORKER 0.9, ALB 3.1, CRP (8/) 1.91 MEDS: NORCO, DILAUDID, LEVEMIR, CLEOCIN, ELIQUIS, LASIX, COLACE, NOVOLOG (MOD SS), MIRALAX, SUBLIMAZE DIET RX: CONSISTENT CARB. PO INTAKE 75-100% EST NUTR NEEDS: 9720-7690 KALS (22-25 KCALS/KG IBW) 122-162 GM PROTEIN (1.5-2.0 GM/KG IBW) 1 ML FLUID/KCAL D-NOT AT NUTRITION RISK; NO NUTRITION DX IDENTIFIED I-CONTINUE W/CURRENT DIET RX. PT IS SEEN BY THE OUTPT RD; HE HAS AN APPOINTMENT SCHEDULED FOR THE END OF SEPTEMBER M/E-ASSIST NEEDED
--- NOTE | 2016-09-27 16:58 | NUR ---
Significant Event: Mepilex dressing to rt lower leg changed due to coming loose. Open area to rt lower leg with redness around. Dopple rt lower leg pulses. Rt leg and scrotum edematous. Dr. Gibson consulted and saw patient. [place] wrap to rt lower leg. [place] one tab at 1314. Showered with family assist. Follow up:
--- NOTE | 2016-09-28 04:06 | NUR ---
Significant Event: 1 assist with transfers. R) leg and scrotum edema. [place] last at 0324. Family at bedside. Dopple pulses to R) foot. Accu check. Accu checks. Follow up:
[2016-09-28] MEDS ORDERED: CLINDAMYCIN150 MG PO (14:44)
[2016-09-28] MEDS ORDERED: ULTRAM50 MG PO (14:53)
[2016-09-28] MEDS ORDERED: LEVEMIR100 UNIT/1 SUB-Q (14:55)
--- NOTE | 2016-09-28 15:50 | NUR ---
D: Patient dismissed to home family amd significant others assistance. Taking analgesic prn for pain with relief. Wound to rt samuels open with redness surrounding wound. Mepilex covering wound. Rt leg and scrotal edema. Patient and significant other voice understanding of dismissal instructions.
== END 2016-09-28 15:50 | disposition disaster alternative care site (69) | DRG 853 ==
LOC: GMED 19:19 → GPCU 20:56
PROVIDERS: Internal Medicine; Nurse Practitioner Family; Physician Assistant; Surgery Vascular Surgery; ADMIT Internal Medicine
PROC: 06H03DZ Insertion of Intraluminal Device into Inferior Vena Cava, Percutaneous Approach (ICD-10-PCS; principal; 2016-09-24)
DX: A41.9 Sepsis, unspecified organism (principal); J18.9 Pneumonia, unspecified organism; E11.51 Type 2 diabetes mellitus with diabetic peripheral angiopathy without gangrene; I82.401 Acute embolism and thrombosis of unspecified deep veins of right lower extremity; L03.115 Cellulitis of right lower limb; Z68.43 Body mass index [BMI] 50.0-59.9, adult; E66.01 Morbid (severe) obesity due to excess calories; I10 Essential (primary) hypertension; Z91.14 Patient's other noncompliance with medication regimen; Z95.820 Peripheral vascular angioplasty status with implants and grafts; Z79.01 Long term (current) use of anticoagulants; Z79.4 Long term (current) use of insulin
CPT/HCPCS: A9577; C1769; C1880; J1170; J1644; J1940; J2250; J2270; J2543; J3010; J3370; J7030; J7040; J7050; Q9967

== ENCOUNTER → 2016-10-20 | Outpatient (CLI) | payer BC ==
[~2016-10-20] MED LIST changes: +ADVIL200 MG PO; +CLINDAMYCIN150 MG PO; +LASIX40 MG PO; +LEVEMIR100 UNIT/1 SUB-Q; +POTASSIUM CHLO10 MEQ PO; +ULTRAM50 MG PO
== END | disposition disaster alternative care site (69) ==
LOC: GNUT 09-30 13:00
DX: E11.65 Type 2 diabetes mellitus with hyperglycemia (principal)
CPT/HCPCS: G0270